=== PATIENT | female | born 1940 | race Caucasian/White ===

== ENCOUNTER 2018-12-30 11:51 | Inpatient (IN) | payer OTHER ==
[~2018-12-30] VITALS: Ht 152.4 cm; Wt 69.4 kg
[2018-12-30 11:55] VITALS: Ht 152.4 cm; Wt 69.4 kg
[2018-12-30 12:52] LABS: BASOPHIL % 0.1 % (0-2); PLATELET COUNT 387 x10^3mcL (130-400)
[2018-12-30 12:53] LABS: RED CELL DISTRIBUTION WIDTH 18.5 % (11.5-14.5)
[2018-12-30 13:05] LABS: CALCIUM 8.8 mg/dL (8.5-10.1); CARBON DIOXIDE 27.4 mmol/L (21-32); CHLORIDE SERUM 97 mmol/L (98-107); CREATININE SERUM 1.6 mg/dL (0.6-1.0); GLUCOSE SERUM 147 mg/dL (74-106); POTASSIUM SERUM 4.4 mmol/L (3.5-5.1); SODIUM SERUM 132 mmol/L (136-145)
[2018-12-30 13:10] LABS: ALBUMIN 2.8 g/dL (3.4-5.0); ALKALINE PHOSPHATASE 140 U/L (46-116); ALT/SGPT 89 U/L (14-59); AST/SGOT 68 U/L (15-37); BILIRUBIN TOTAL 0.47 mg/dL (0.20-1.00); TOTAL PROTEIN, SERUM 7.2 g/dL (6.4-8.2)
[2018-12-30] MEDS ORDERED: PLA75 PO (14:33)
[2018-12-30] MEDS ORDERED: MIRAPEX0.25 MG PO (14:33)
[2018-12-30] MEDS ORDERED: COREG3.125 MG PO (14:33)
[2018-12-30] MEDS ORDERED: WELLBUTRIN XL300 M1 PO (14:34)
[2018-12-30] MEDS ORDERED: LEVOTHYROXIN0.075 M2 PO (14:34)
[2018-12-30] MEDS ORDERED: ATORVASTATIN CA40 M1 PO (14:34)
[2018-12-30] MEDS ORDERED: LISINOPRIL10 MG PO (14:34)
[2018-12-30] MEDS ORDERED: NITROGLYCERIN0.4 MG SL (14:35)
[2018-12-30] MEDS ORDERED: NOR10T PO (14:35)
[2018-12-30] MEDS ORDERED: ADV250/50 INH (14:35)
[2018-12-30 14:42] LABS: T3 TOTAL 0.99 ng/mL
[2018-12-30 14:57] LABS: MAGNESIUM 2.1 mg/dL (1.8-2.4); PHOSPHOROUS 3.6 mg/dL (2.5-4.9)
[2018-12-30 14:59] LABS: CHOLESTEROL/HDL RATIO 2.1
[2018-12-30 15:05] LABS: FREE T4 1.48 ng/dL (0.76-1.46); FREE THYROXINE INDEX 3.8 ug/dL (1.4-4.5); T4(THYROXINE) 10.9 ug/dL (4.7-13.3)
[2018-12-30 15:08] LABS: microscopic required? YES; urine erythrocyte NEGATIVE (NEGATIVE)
[2018-12-30 15:38] VITALS: BP 100/60
[2018-12-30 16:58] VITALS: BP 88/49
[2018-12-30 17:54] VITALS: BP 121/59
[2018-12-30 19:35] VITALS: BP 120/72
[2018-12-31 05:06] VITALS: BP 147/87
[2018-12-31 07:03] LABS: BASOPHIL % 0.3 % (0-2); PLATELET COUNT 344 x10^3mcL (130-400)
[2018-12-31 07:18] LABS: RED CELL DISTRIBUTION WIDTH 18.6 % (11.5-14.5)
[2018-12-31 07:27] LABS: CALCIUM 8.6 mg/dL (8.5-10.1); CARBON DIOXIDE 28.4 mmol/L (21-32); CHLORIDE SERUM 104 mmol/L (98-107); GLUCOSE SERUM 85 mg/dL (74-106); MAGNESIUM 1.9 mg/dL (1.8-2.4); PHOSPHOROUS 3.8 mg/dL (2.5-4.9); POTASSIUM SERUM 4.9 mmol/L (3.5-5.1); SODIUM SERUM 137 mmol/L (136-145)
[2018-12-31 08:17] VITALS: BP 125/68
[2018-12-31 13:19] VITALS: BP 106/67
[2018-12-31 16:07] VITALS: BP 144/72
[2018-12-31 20:53] VITALS: BP 105/60
[2019-01-01 05:46] VITALS: BP 166/78
[2019-01-01 07:59] LABS: CALCIUM 8.5 mg/dL (8.5-10.1); CARBON DIOXIDE 28.7 mmol/L (21-32); CHLORIDE SERUM 102 mmol/L (98-107); CREATININE SERUM 0.9 mg/dL (0.6-1.0); GLUCOSE SERUM 84 mg/dL (74-106); MAGNESIUM 1.8 mg/dL (1.8-2.4); PHOSPHOROUS 3.6 mg/dL (2.5-4.9); POTASSIUM SERUM 4.7 mmol/L (3.5-5.1); SODIUM SERUM 137 mmol/L (136-145)
[2019-01-01 08:48] LABS: BASOPHIL % 0.3 % (0-2); PLATELET COUNT 345 x10^3mcL (130-400); RED CELL DISTRIBUTION WIDTH 18.8 % (11.5-14.5)
[2019-01-01 09:27] VITALS: BP 134/76
[2019-01-01 13:30] VITALS: BP 152/90
[2019-01-01] MEDS ORDERED: LEVAQUIN750 MG PO (13:39)
[2019-01-01] MEDS ORDERED: MEDDP PO (13:41)
== END 2019-01-01 15:52 | disposition home or self-care (01) | DRG 193 ==
LOC: ED 11:51 → DU 13:44
PROVIDERS: Emergency Medicine; ADMIT Family Medicine
DX: J18.9 Pneumonia, unspecified organism (principal); N17.0 Acute kidney failure with tubular necrosis; J96.01 Acute respiratory failure with hypoxia; N39.0 Urinary tract infection, site not specified; E44.0 Moderate protein-calorie malnutrition; J90 Pleural effusion, not elsewhere classified; J44.1 Chronic obstructive pulmonary disease with (acute) exacerbation; E87.1 Hypo-osmolality and hyponatremia; I10 Essential (primary) hypertension; E03.9 Hypothyroidism, unspecified; I95.89 Other hypotension; G25.81 Restless legs syndrome; M47.892 Other spondylosis, cervical region; I25.2 Old myocardial infarction; Z99.81 Dependence on supplemental oxygen; Z68.30 Body mass index [BMI] 30.0-30.9, adult; Z87.891 Personal history of nicotine dependence; Z95.5 Presence of coronary angioplasty implant and graft; I25.10 Atherosclerotic heart disease of native coronary artery without angina pectoris
CPT/HCPCS: 36600; 84439; 94150; 97116-GP; J1956; J7030; J7620